=== PATIENT | female | born 1940 | race Caucasian/White ===

== ENCOUNTER → 2016-07-14 | Outpatient (CLI) | payer OTHER, MEDICARE | LOC: BMCIMAGING 13:33 | PROVIDERS: ATTEND Internal Medicine | DX: J98.4 Other disorders of lung (principal); R05 Cough ==

== ENCOUNTER → 2016-09-08 | Outpatient (CLI) | payer OTHER, MEDICARE | LOC: BMCIMAGING 09:48 | PROVIDERS: ATTEND Internal Medicine | DX: Z13.820 Encounter for screening for osteoporosis (principal); M85.80 Other specified disorders of bone density and structure, unspecified site ==

== ENCOUNTER → 2017-09-25 | Outpatient (CLI) | payer OTHER, MEDICARE | DX: Z12.31 Encounter for screening mammogram for malignant neoplasm of breast (principal); Z80.3 Family history of malignant neoplasm of breast; Z85.3 Personal history of malignant neoplasm of breast ==